=== PATIENT | female | born 1985 | race Asian ===

== ENCOUNTER 2021-10-29 15:12 | Emergency (ER) | payer OTHER ==
[~2021-10-29] VITALS: Ht 162.6 cm; Wt 56.0 kg
[2021-10-29] MEDS ORDERED: TETANUS, DIPHTHERIA, PERTUSSIS VAC/PF 0.5ML (>10YR OLD) IM ONE (16:00)
[2021-10-29] MEDS ORDERED: FENTANYL CITRATE/PF 50MCG/ML 2ML VIAL IM ONE (16:00)
[2021-10-29] MEDS ORDERED: CIPHCO LEFT EAR (16:02)
[2021-10-29] MEDS ORDERED: LEVETIRACETAM 1000MG PREMIX 100 ML IV ONE (16:15)
[2021-10-29] MEDS ORDERED: SODIUM CHLORIDE 3% 500ML IV SOLN IV ONE (16:30)
[2021-10-29 16:37] VITALS: BP 131/61
[2021-10-29 16:49] LABS: BASOPHILS % 0.2 % (0.0-2.0); EOSINOPHILS % 0.2 % (0.0-5.0); HEMATOCRIT. 39.7 % (36.0-48.0); HEMOGLOBIN. 13.3 g/dL (12.0-16.0); LYMPHOCYTES % 7.2 % (20.0-50.0); MEAN CORPUSCULAR HEMOGLOBIN 31.1 pg (28.0-32.0); MEAN CORPUSCULAR VOLUME 93.3 fL (81.0-99.0); MEAN PLATELET VOLUME 7.6 fl (7.4-10.4); MONOCYTES % 4.5 % (2.0-8.0); NEUTROPHILS % 87.9 % (40.0-76.0); PLATELET 255 x1000/uL (130-400); RED BLOOD CELL COUNT 4.26 mill/uL (4.2-5.4)
[2021-10-29 16:55] LABS: CHLORIDE 108 mEq/L (98-107)
[2021-10-29 16:57] LABS: PROTHROMBIN TIME 10.4 sec (9.6-11.0)
[2021-10-29] MEDS ORDERED: SODIUM CHLORIDE 3% 250 ML IV NR (17:00)
== END 2021-10-29 16:56 | disposition short-term general hospital (02) ==
LOC: ER 15:38
DX: S02.19XA Other fracture of base of skull, initial encounter for closed fracture (principal); S06.6X9A Traumatic subarachnoid hemorrhage with loss of consciousness of unspecified duration, initial encounter; S06.5X9A Traumatic subdural hemorrhage with loss of consciousness of unspecified duration, initial encounter; S06.4X9A Epidural hemorrhage with loss of consciousness of unspecified duration, initial encounter; S09.22XA Traumatic rupture of left ear drum, initial encounter; V00.831A Fall from motorized mobility scooter, initial encounter; Y93.89 Activity, other specified; Y92.488 Other paved roadways as the place of occurrence of the external cause
CPT/HCPCS: 36415; 70450; 70480; 80053; 85025; 85610; 90471; 90715; 96365; 96372; 99291; J1953; J3010